=== PATIENT | female | born 1960 | race Caucasian/White ===

== ENCOUNTER 2016-10-06 19:29 | Emergency (ER) | payer OTHER ==
[~2016-10-06] VITALS: Ht 157.5 cm; Wt 72.3 kg
[2016-10-06 20:16] LABS: HEMATOCRIT 46.6 % (36.0-46.0); MCH 31.5 PG (29.0-34.0); MCHC 33.7 G/DL (30.0-36.0); MCV 93.4 FL (83-99); MEAN PLAT.VOLUME 11.6 uM^3 (9.5-12.4); PLATELET COUNT 268 K/uL (156-360); RBC DIS.WIDTH-CV 13.8 % (11.8-14.6); RED BLOOD COUNT 4.99 M/uL (3.80-5.20)
[2016-10-06 21:29] LABS: CHLORIDE 108 mEq/L (99-109); POTASSIUM 3.8 mEq/L (3.7-5.4)
[2016-10-06 21:30] LABS: SODIUM 143 mEq/L (136-147)
[2016-10-06 21:31] LABS: GLUCOSE 129 mg/dL (70-99)
[2016-10-06 21:33] LABS: ANION GAP 8 MEQ/L (2-14)
[2016-10-06 21:35] LABS: GFR ESTIMATE (CALCULATED) > 59 mL/min/
[2016-10-06 21:36] LABS: UREA NITROGEN (BUN) 11 mg/dL (9-23)
[2016-10-06 23:26] VITALS: BP 139/66
== END 2016-10-06 23:44 | disposition home or self-care (01) ==
LOC: EME 19:29
PROVIDERS: Physician Assistant Medical
DX: S60.512A Abrasion of left hand, initial encounter (principal); S60.511A Abrasion of right hand, initial encounter; S40.811A Abrasion of right upper arm, initial encounter; S30.811A Abrasion of abdominal wall, initial encounter; S30.1XXA Contusion of abdominal wall, initial encounter; V44.5XXA Car driver injured in collision with heavy transport vehicle or bus in traffic accident, initial encounter; W22.10XA Striking against or struck by unspecified automobile airbag, initial encounter; F17.200 Nicotine dependence, unspecified, uncomplicated
CPT/HCPCS: 74177; 80048; 85027; 99281; 99284; J7030